=== PATIENT | male | born 1970 | race Caucasian/White ===

== ENCOUNTER 2018-08-17 20:07 | Emergency (ER) | payer OTHER ==
[~2018-08-17] VITALS: Ht 180.3 cm; Wt 111.1 kg
[2018-08-17] MEDS ORDERED: PREDNISONE50 MG PO (22:36)
[2018-08-17] MEDS ORDERED: PERCOCET 7.5-31 EACH PO (22:40)
[2018-08-17] MEDS ORDERED: FLEXERIL PO (22:40)
[2018-08-17] MEDS ORDERED: LISINOPRIL10 MG PO (23:21)
[2018-08-17 23:45] VITALS: BP 146/98
== END 2018-08-17 23:46 | disposition home or self-care (01) ==
LOC: M.ERS 20:07
DX: M54.12 Radiculopathy, cervical region (principal); I10 Essential (primary) hypertension; Z90.49 Acquired absence of other specified parts of digestive tract

== ENCOUNTER 2018-08-20 20:03 | Emergency (ER) | payer OTHER ==
[~2018-08-20] VITALS: Ht 180.3 cm; Wt 83.9 kg
[~2018-08-20 20:03] MED LIST: FLEXERIL PO; LISINOPRIL10 MG PO; PERCOCET 7.5-31 EACH PO; PREDNISONE50 MG PO
[2018-08-20] MEDS ORDERED: KEFLEX500 M1 PO (20:55)
[2018-08-20 21:02] VITALS: BP 155/89
== END 2018-08-20 21:02 | disposition home or self-care (01) ==
LOC: M.ERS 20:03
DX: M54.6 Pain in thoracic spine (principal); I10 Essential (primary) hypertension; Z90.49 Acquired absence of other specified parts of digestive tract

== ENCOUNTER 2018-08-23 09:52 | Emergency (ER) | payer OTHER ==
[~2018-08-23] VITALS: Ht 180.3 cm; Wt 120.2 kg
[~2018-08-23 09:52] MED LIST changes: +KEFLEX500 M1 PO
[2018-08-23 12:27] VITALS: BP 146/87
== END 2018-08-23 12:28 | disposition home or self-care (01) ==
LOC: M.ERS 09:52
DX: D17.1 Benign lipomatous neoplasm of skin and subcutaneous tissue of trunk (principal); I10 Essential (primary) hypertension; Z90.49 Acquired absence of other specified parts of digestive tract